=== PATIENT | female | born 1950 | race Caucasian/White ===

== ENCOUNTER 2019-10-29 17:38 | IRF | payer MEDICARE, OTHER, SELFPAY ==
--- NOTE | ~2019-10-29 | US_ITS ---
EXAMINATION: US venous doppler [facility] DATE: 11/07/2019 12:31 INDICATION: Lower limb pain TECHNIQUE: Grayscale ultrasound images without and with compression and Doppler ultrasound images of the bilateral lower extremity veins were obtained. COMPARISON: None. FINDINGS: The visualized portions of right common femoral vein, profunda (deep) femoral vein, femoral vein, pop liteal vein, posterior tibial veins, peroneal veins, gastrocnemius vein and greater saphenous vein ou tflow are patent. There is some synovitis within a 7.0 x 2.4 x 1.8 cm Julio cyst at the right poplite al fossa. The visualized portions of left common femoral vein, profunda femoral vein, femoral vein, popliteal v ein, posterior tibial veins, peroneal veins, gastrocnemius vein and greater saphenous vein outflow ar e patent. IMPRESSION: 1. No deep venous thrombosis in either lower limb. 2. Moderate-sized right Julio's cyst. Reviewed, dictated and finalized at location A.
[2019-10-29 17:30] VITALS: BP 143/66; PULSE 88; RESP 20; TEMP 36.1; O2SAT 100; BMI 31.2
--- NOTE | 2019-10-29 17:53 | ADMGEN ---
This patient, Mray Jo Mitchell, was admitted to [facility] Room 218-01. Patient/family oriented to hospital policies and general routines including ID bracelet, bed and alarms, visiting hours, pain management, procedures, bathroom and other care routines, personal items, smoking policy, room service/diet, and visiting hours. Valuables list has been completed. Information on how to activate the Rapid Response Team has been discussed. Patient/Family are encouraged to report perceived risks to care and to ask questions if they do not understand what they are told or what they should do. 1730 arrived to [facility] via ambulance, alert/oriented
[2019-10-29 18:49] LABS: Glucose Point of Care 130 (65-105)
[2019-10-29] MEDS: ATORVASTATIN 40 MG TABLET PO (20:23)
[2019-10-29] MEDS: levETIRAcetam 500 MG TABLET 1000 MG PO (20:24)
[2019-10-29] MEDS: PANTOPRAZOLE SOD SESQUIHYDRATE 20 MG TAB PO (20:24)
[2019-10-29] MEDS: GABAPENTIN 300 MG CAPSULE PO (20:25)
[2019-10-29] MEDS: TAMSULOSIN HCL 0.4 MG CAPSULE PO (20:25)
[2019-10-29] MEDS: DONEPEZIL HCL 10 MG TABLET PO (20:26)
[2019-10-29] MEDS: TOPIRAMATE 25 MG TABLET PO (20:26)
[2019-10-29] MEDS: SENNA/DOCUSATE SODIUM TABLET 2 TAB PO (20:27)
[2019-10-29 21:23] LABS: Glucose Point of Care 156 (65-105)
[2019-10-29 22:00] VITALS: BP 135/58; PULSE 95; RESP 17; TEMP 36.7; O2SAT 99
[2019-10-29 22:39] LABS: Add Urine Microscopic? NO; Appearance Urine Clear (Clear); Bilirubin Urine Negative (Negative); Blood Urine Negative (Negative); Color Urine Colorless (Yellow); Glucose Urine UA Negative (Negative); Ketones Urine Negative (Negative); Leukocyte Esterase Ur Negative LEU/UL (NEGATIVE); Nitrate Urine Negative (Negative); Protein Urine Negative (Negative); Specific Grav Ur 1.006 (1.001-1.035); Urobilinogen Urine Negative mg/dL (<2.0)
[2019-10-30 04:37] LABS: Basophils Percent Auto 0.2 % (0.2-1.2); Eosinophils Absolute Auto 0.2 K/mm3 (0-0.3); Eosinophils Percent Auto 3.3 % (0-4.4); Hematocrit 25.6 % (37.0-47.0); Hemoglobin 8.3 g/dL (12.0-15.0); Immature Granulocyte Absolute 0.02 K/mm3 (0.00-0.031); Immature Granulocyte Percent A 0.3 % (0-0.5); Lymphocytes Absolute Auto 1.45 K/mm3 (0.9-3.2); Lymphocytes Percent Auto 22.8 % (18.3-44.2); Mean Corpuscular HGB Conc 32.4 g/dl (32-36); Mean Corpuscular Hemoglobin 28.8 pg (26-34); Mean Corpuscular Volume 88.9 fl (80-100); Mean Platelet Volume 10.4 fl (7.4-10.4); Monocytes Absolute Auto 0.6 K/mm3 (0.1-0.6); Monocytes Percent Auto 8.9 % (2.6-8.5); Neutrophils Absolute Auto 4.1 K/mm3 (1.3-6.7); Neutrophils Percent Auto 64.5 % (45.5-73.1); Platelet Count Result 132 k/mm3 (150-375); Red Blood Count 2.88 M/mm3 (4.2-5.4); Red Cell Distribution Width 15.8 % (11.5-14.5); White Blood Count 6.4 K/mm3 (4.5-10.0)
[2019-10-30 05:01] LABS: Anion Gap 8.5 mmol/L (7-16); Blood Urea Nitrogen 23 mg/dL (7-17); Carbon Dioxide 26 mmol/L (22-30); Chloride 107 mmol/L (98-107); Estimated CRCL calculation 47 ml/min; Estimated Glomerular Filt Rate 55; Glucose 107 mg/dL (65-105); Potassium 4.5 mmol/L (3.4-5.0); Sodium 137 mmol/L (137-145)
[2019-10-30] MEDS: GABAPENTIN 300 MG CAPSULE PO ×3 (05:17→20:11)
[2019-10-30 06:00] VITALS: BP 139/60; PULSE 81; RESP 18; TEMP 36.9; O2SAT 100
[2019-10-30 06:40] LABS: Glucose Point of Care 113 (65-105)
[2019-10-30] MEDS: ASPIRIN 325 MG TABLET PO ×2 (08:35→17:28)
[2019-10-30] MEDS: CHOLECALCIFEROL 1,000 UNIT TABLET 2000 UNITS PO (08:36)
[2019-10-30] MEDS: lamoTRIgine 25 MG TABLET 50 MG PO (08:36)
[2019-10-30] MEDS: levETIRAcetam 500 MG TABLET 1000 MG PO ×2 (08:37→20:11)
[2019-10-30] MEDS: metFORMIN HCL 500 MG TABLET PO (08:37)
[2019-10-30] MEDS: lamoTRIgine 100 MG TABLET PO (08:37)
[2019-10-30] MEDS: TOPIRAMATE 25 MG TABLET PO ×2 (08:38→20:11)
[2019-10-30] MEDS: MULTIVITAMINS /C LUTEIN (CENTRUM SILVER) TABLET *BKC 1 TAB PO (08:38)
[2019-10-30] MEDS: polyethylene glycoL 3350 17 GM POWD.PACK PO (08:38)
--- NOTE | 2019-10-30 11:00 | WPDREHABHP ---
H&P: HPI History of Present Illness Date/Time: 10/30/19 13:29 Chief complaint: L distal femur fracture Narrative: Mary Jo Mitchell is a 69 year old female HISTORY OF PRESENT ILLNESS: The patient's primary rehab impairment category is0 7-[id number] extremity fracture The etiologic diagnosis is oblique fracture of the left distal left femur with medial and anterior displacement of the distal fracture fragment. /Post surgery I saw this patient [id number] on October 30, 2019 at 11:00 a.m. The patient is a 69-year-old right-handed white woman with a past medical history of left cerebral hemispheric stroke with residual right-sided weakness, prior subdural hematoma, right frontal ventriculoperitoneal shunt in the setting of normal pressure hydrocephalus, diabetes mellitus, hypertension, hyperlipidemia and seizures who initially presented to [facility] and October 25, 2019 after suffering a fall on to the left side of her body. The evaluation demonstrated an oblique fracture of the distal left femur with medial and anterior displacement of the distal fracture fragment and a chronic appearing T11 compression deformity. Orthopedic surgery was consulted for the femur fracture and Neurosurgery was consulted for the T11 compression fracture with 25% height loss. The patient underwent an intramedullary nailing on October 26, [address] Lambert Siddiqi. She is weight-bearing as tolerated. The patient will need sutures removed in 3 weeks and this can be done at rehab or at by home health nursing. Postoperatively she has experienced acute blood-loss anemia acute postoperative pain and hypotension that has resolved. Neurosurgery evaluated the T11 compression fracture and decided to manage this nonoperatively with a quick draw brace. She is not on any spinal precautions. DVT prophylaxis with heparin while inpatient and then transition to enteric-coated aspirin 325 milligram b.i.d. for 14 days. Surgical dressing are to be changed on postop day 2 through 5 and is okay for nursing reinforce the dressing p.r.n. if the become swelled or have shadowing. The patient's follow-up appointment has not been scheduled at this time. The patient has not traveled outside the [place] or had contact with someone who is ill that has traveled outside the [place] in the past 21 days. The patient has not traveled to an area of the [place] that is experiencing no transmission of the Coronavirus and has not had close personal contact with anyone that has. The patient does not have a fever. The patient is not experiencing any lower except respiratory illness symptoms. Therapy was initiated at the acute care facility and the patient transferred to us from [facility] on October 29, 2019 FALLS OR SURGERIES: The patient has had major surgeries in the 100 days prior to admission. They had falls in the past year. They had falls with injury in the past year. PAST MEDICAL HISTORY: type 2 diabetes mellitus with peripheral neuropathy, hypertension, hyperlipidemia, Alzheimer's dementia, seizures, left cerebral hemispheric stroke with residual right-sided weakness, history of subdural hematoma [employer] or hemorrhage 2010 normal pressure hydrocephalus with a shunt placement, urinary retention. PAST SURGICAL HISTORY: Mildred hole in 2009, right frontal ventriculoperitoneal shunt. 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 The patient lives in a 1 level home with 3 steps to enter. She was completely independent prior with no assistive device. Her on sons are available to help her following rehab if necessary. The patient is a retired nurse and likes to read. She is a nonsmoker no drug abuse occasional alcohol use. The patient reported falls with injury in the past 6 months she had ma kae surgery this admission FAMILY HISTORY: father had myocardial infarction and renal failure. Mother of ovarian cancer. THIERNO
[2019-10-30 11:55] LABS: Glucose Point of Care 122 (65-105)
[2019-10-30 13:02] VITALS: BMI 31.2
--- NOTE | 2019-10-30 13:37 | PCCCNOTE ---
On 10/30/19, the student, [Rj Byrd ], provided care and completed [facility] documentation on this patient. I have reviewed the student's documentation and agree with the findings.
[2019-10-30 14:00] VITALS: BP 115/58; PULSE 85; RESP 20; TEMP 36.9; O2SAT 100
--- NOTE | 2019-10-30 17:19 | RPD ---
INDIVIDUALIZED PLAN OF CARE FOR Mary Jo Mitchell Brief Synthesis of Pre-Admission Screen, Post-Admission Evaluation and Therapy Evaluations: The patient presents to rehab with Oblique fracture of the left distal left femur with medial and anterior displacement of the distal fracture fragment. Comorbidities include status post intramedullary nailing of the left femur fracture, chronic T11 compression deformity with 25% height loss, diabetes mellitus, hypertension, hyperlipidemia, obstructive sleep apnea, ventriculoperitoneal shunt, acute postoperative pain, and acute blood loss anemia. The patient?s needs will be best met in an intensive program vs. at a lower level of care. The patient requires physician services for medical oversight, management of postop complications in setting of present comorbidities, and pain management. The patient requires nursing services for DVT prophylactics, infection protection, medication management and education, pressure relief, and wound care. Deficits include:ADLs, Balance, Endurance, Family Training/Education, Mobility, Pain Management, ROM, Safety, Strength, and Transfers Crusher Operator/Case Management for: Discharge Planning and Patient/Family Counseling Physical Therapy: 5 days per week for 90 minutes. Treatments may include: Therapeutic Exercise, Gait Training, Neuromuscular Re-education, Transfer Training, Community Reintegration, Bed Mobility, Patient/Family Education, Wheelchair Mobility Group Therapy/Concurrent Therapy Rationales: -Improve attention span during functional activities in a distracted environment. -Enhance problem solving and/or adequate judgment skills during functional activities in a distracted environment. -Promote increased safety awareness in a distracted environment to reduce fall risk with functional tasks, transfers, and ambulation to allow a more safe, self-sufficient return to the home environment. -Improve dynamic balance skills to promote safety and independence with functional activities in a distracted environment for maximum gain. Occupational Therapy: 5 days per week for 90 minutes. Treatments may include: Therapeutic Exercise, Therapeutic Activity, Cognitive Training, Self-Care Transfer Training, Community Reintegration, Home Management, Patient/Family Education, Wheelchair Mobility Training, Energy Conservation Training Group Therapy/Concurrent Therapy Rationales: -Allow therapist to observe and teach generalization and carry-over of skills learned in individual therapy. -Enhance problem solving and sequencing skills during therapeutic activities in a distracted environment. -Promote increased safety awareness in a realistic setting to reduce fall risk with functional tasks due to visual and verbal distractions. -Increase functional level with ADLs, ADL transfers and use of adaptive equipment through therapeutic activities with others while promoting safety to allow a more safe, self-sufficient return home. Medical Prognosis: Good Anticipated Length of Stay: 14 days Rehab Goals: Eating Goal: 06-Independent Oral Hygiene Goal: 06-Independent Toileting Hygiene Goal: 06-Independent Shower/Bathe Self Goal: 05-Setup or Clean Up Assistance Upper Body Dressing Goal: 05-Setup or Clean Up Assistance Lower Body Dressing Goal: 05-Setup or Clean Up Assistance Putting On/Taking Off Footwear Goal: 05-Setup or Clean Up Assistance Rolling Left and Right Goal: 06-Independent Sit to Lying Goal: 06-Independent Lying to Sitting on Side of Bed Goal: 06-Independent Sit to Stand Goal: 06-Independent Chair/Ilk-qs-Orfsi Transfer Goal: 06-Independent Toilet Transfer Goal: 06-Independent Car Transfer Goal: 06-Independent Walk 10' Goal: 06-Independent Walk 50' with Two Turns Goal: 06-Independent Walk 150' Goal: 03-Partial/Moderate Assistance Walk 10' on Uneven Surface Goal: 06-Independent 1 Step (Curb) Goal: 06-Independent 4 Steps Goal: 06-Independent 12 Steps Goal Score: 03-Partial/Moderate Assistance
[2019-10-30 17:46] LABS: Glucose Point of Care 99 (65-105)
[2019-10-30] MEDS: DONEPEZIL HCL 10 MG TABLET PO (20:10)
[2019-10-30] MEDS: PANTOPRAZOLE SOD SESQUIHYDRATE 20 MG TAB PO (20:11)
[2019-10-30] MEDS: SENNA/DOCUSATE SODIUM TABLET 2 TAB PO (20:11)
[2019-10-30] MEDS: ATORVASTATIN 40 MG TABLET PO (20:11)
[2019-10-30] MEDS: TAMSULOSIN HCL 0.4 MG CAPSULE PO (20:11)
[2019-10-30 20:44] LABS: Glucose Point of Care 135 (65-105)
[2019-10-30 21:36] VITALS: BP 134/65; PULSE 86; RESP 18; TEMP 35.8; O2SAT 100
[2019-10-31] MEDS: GABAPENTIN 300 MG CAPSULE PO ×3 (05:31→20:18)
[2019-10-31 06:00] VITALS: BP 118/58; PULSE 86; RESP 18; TEMP 36.3; O2SAT 97
[2019-10-31 06:50] LABS: Glucose Point of Care 113 (65-105)
[2019-10-31 08:00] VITALS: PULSE 86; RESP 18; O2SAT 97
[2019-10-31] MEDS: CHOLECALCIFEROL 1,000 UNIT TABLET 2000 UNITS PO (08:33)
[2019-10-31] MEDS: lamoTRIgine 25 MG TABLET 50 MG PO (08:33)
[2019-10-31] MEDS: metFORMIN HCL 500 MG TABLET PO (08:33)
[2019-10-31] MEDS: ASPIRIN 325 MG TABLET PO ×2 (08:33→17:05)
[2019-10-31] MEDS: levETIRAcetam 500 MG TABLET 1000 MG PO ×2 (08:34→20:18)
[2019-10-31] MEDS: MULTIVITAMINS /C LUTEIN (CENTRUM SILVER) TABLET *BKC 1 TAB PO (08:34)
[2019-10-31] MEDS: lamoTRIgine 100 MG TABLET PO (08:34)
[2019-10-31] MEDS: TOPIRAMATE 25 MG TABLET PO ×2 (08:34→20:18)
[2019-10-31] MEDS: polyethylene glycoL 3350 17 GM POWD.PACK PO (08:34)
[2019-10-31 14:00] VITALS: BP 136/61; PULSE 82; RESP 18; TEMP 36.4; O2SAT 100
[2019-10-31 16:30] LABS: Glucose Point of Care 123 (65-105)
[2019-10-31] MEDS: DONEPEZIL HCL 10 MG TABLET PO (20:18)
[2019-10-31] MEDS: ATORVASTATIN 40 MG TABLET PO (20:18)
[2019-10-31] MEDS: PANTOPRAZOLE SOD SESQUIHYDRATE 20 MG TAB PO (20:18)
[2019-10-31] MEDS: TAMSULOSIN HCL 0.4 MG CAPSULE PO (20:19)
[2019-10-31] MEDS: SENNA/DOCUSATE SODIUM TABLET 2 TAB PO (20:19)
[2019-10-31 21:27] VITALS: BP 137/63; PULSE 86; RESP 18; TEMP 35.9; O2SAT 100
[2019-11-01 06:00] VITALS: BP 119/57; PULSE 85; RESP 18; TEMP 35.6; O2SAT 95
[2019-11-01] MEDS: GABAPENTIN 300 MG CAPSULE PO ×3 (06:37→20:10)
[2019-11-01 06:48] LABS: Glucose Point of Care 109 (65-105)
[2019-11-01 08:00] VITALS: PULSE 85; RESP 18; O2SAT 95
[2019-11-01] MEDS: CHOLECALCIFEROL 1,000 UNIT TABLET 2000 UNITS PO (08:10)
[2019-11-01] MEDS: levETIRAcetam 500 MG TABLET 1000 MG PO ×2 (08:10→20:11)
[2019-11-01] MEDS: lamoTRIgine 25 MG TABLET 50 MG PO (08:10)
[2019-11-01] MEDS: ASPIRIN 325 MG TABLET PO ×2 (08:10→17:03)
[2019-11-01] MEDS: lamoTRIgine 100 MG TABLET PO (08:11)
[2019-11-01] MEDS: TOPIRAMATE 25 MG TABLET PO ×2 (08:11→20:12)
[2019-11-01] MEDS: metFORMIN HCL 500 MG TABLET PO (08:11)
[2019-11-01] MEDS: polyethylene glycoL 3350 17 GM POWD.PACK PO (08:11)
[2019-11-01] MEDS: MULTIVITAMINS /C LUTEIN (CENTRUM SILVER) TABLET *BKC 1 TAB PO (08:11)
[2019-11-01 09:12] VITALS: TEMP 35.6
[2019-11-01 14:00] VITALS: BP 128/58; PULSE 88; RESP 16; TEMP 37.2; O2SAT 100
[2019-11-01 17:09] LABS: Glucose Point of Care 114 (65-105)
[2019-11-01] MEDS: ATORVASTATIN 40 MG TABLET PO (20:10)
[2019-11-01] MEDS: DONEPEZIL HCL 10 MG TABLET PO (20:11)
[2019-11-01] MEDS: SENNA/DOCUSATE SODIUM TABLET 2 TAB PO (20:11)
[2019-11-01] MEDS: PANTOPRAZOLE SOD SESQUIHYDRATE 20 MG TAB PO (20:11)
[2019-11-01] MEDS: TAMSULOSIN HCL 0.4 MG CAPSULE PO (20:11)
[2019-11-01 20:22] VITALS: BP 163/69; PULSE 107; RESP 18; TEMP 37.6; O2SAT 94
[2019-11-02] MEDS: GABAPENTIN 300 MG CAPSULE PO ×3 (05:46→21:00)
[2019-11-02 06:00] VITALS: BP 123/58; PULSE 93; RESP 18; TEMP 36.9; O2SAT 98
[2019-11-02 06:33] LABS: Glucose Point of Care 102 (65-105)
[2019-11-02 08:00] VITALS: PULSE 88; RESP 18; O2SAT 98
[2019-11-02] MEDS: lamoTRIgine 100 MG TABLET PO (08:32)
[2019-11-02] MEDS: lamoTRIgine 25 MG TABLET 50 MG PO (08:32)
[2019-11-02] MEDS: TOPIRAMATE 25 MG TABLET PO ×2 (08:32→21:00)
[2019-11-02] MEDS: polyethylene glycoL 3350 17 GM POWD.PACK PO (08:33)
[2019-11-02] MEDS: CHOLECALCIFEROL 1,000 UNIT TABLET 2000 UNITS PO (08:33)
[2019-11-02] MEDS: metFORMIN HCL 500 MG TABLET PO (08:33)
[2019-11-02] MEDS: ASPIRIN 325 MG TABLET PO ×2 (08:33→17:44)
[2019-11-02] MEDS: levETIRAcetam 500 MG TABLET 1000 MG PO ×2 (08:33→20:59)
[2019-11-02] MEDS: MULTIVITAMINS /C LUTEIN (CENTRUM SILVER) TABLET *BKC 1 TAB PO (08:33)
--- NOTE | 2019-11-02 10:52 | WPDNEURORHBP ---
Subjective Date/time seen: S/P surgery for left distalfemur fracture and surgeryseen on 11/01/19 and note being documented today11/02/19 10:52 Review of Systems Review of Systems: All systems reviewed & are unremarkable except as noted in HPI and below Functional Status Ambulation Ability Ability to Ambulate 10 Feet: Contact Guard Ambulation Assistive Devices: Walker, Wheeled Transfers Ability Ability to Transfer In/Out of Chair: Minimum Assistance X 1 Exam Const: General: cooperative, comfortable and no acute distress HENMT: Head: normal to inspection and normocephalic Ears: hearing grossly normal bilaterally General nose exam: Normal external nose present Face and sinus: normal facial exam and face symmetric Mouth: Yes Normal oral and palatal mucosa present, Yes tongue normal and Yes moist mucous membranes Eyes: General: appearance normal, both eyes and all related structures Neck: Neck: full ROM and no lymphadenopathy Thyroid: thyroid normal Resp: Effort & Inspection: normal respiratory effort Auscultation: clear to auscultation bilaterally Cardio: Rate: regular rate GI: Percussion: Yes normal to percussion Auscultation: normal bowel sounds Skin: General skin exam: no rashes or lesions noted Neuro: General: oriented to person, oriented to place, oriented to time, moves all extremities and no meningeal signs Cranial nerves: Yes Equal, round and reactive pupils present, Yes Nystagmus not present, Yes Midline tongue present and Yes Ability to bilaterally rotate head present Speech: normal speech Gait exam (Neuro): Unable to assess gait Motor exam (neuro): 5/5 motor strength present throughout (residual right hemiparesis) Deep tendon reflexes (DTR's): Right triceps reflex intensity grade: 2+, Left triceps reflex intensity grade: 1+, Rt Biceps (C5, C6): 2+, Left biceps reflex intensity grade: 1+, Right brachioradialis reflex intensity grade: 2+, Left brachioradialis reflex intensity grade: 1+, Right patellar reflex intensity grade: 2+, Right ankle reflex intensity grade: 2+ and Left ankle reflex intensity grade: 1+ Plantar Reflex Responses: downgoing: left and upgoing (positive Babinski): right Psych: Speech and movement: Clear speech present Affect: normal affect Attitude: cooperative Thought process: Normal thought process present Thought content: Yes Normal thought content present Insight: Fair insight present (Psych) Judgement: Fair judgement present (Psych) Objective Data Vital Signs Vital Signs: Vital Signs - 24 hr 11/01/19 14:00 11/01/19 20:22 11/02/19 06:00 Temperature 37.2 C 37.6 C H 36.9 C Pulse Rate 88 107 H 93 Respiratory Rate 16 18 18 Blood Pressure 128/58 L 163/69 H 123/58 L Pulse Oximetry 100 94 98 Intake/Output Intake/Output: Intake & Output 10/30/19 10/31/19 11/01/19 11/02/19 23:59 23:59 23:59 23:59 Intake Total 960 1320 1440 240 Balance 960 1320 1440 240 Meds/Results Medications: Active Medications Generic Name Dose Route Start Last Admin Trade Name Freq PRN Reason Stop Dose Admin Acetaminophen 1,000 mg 10/29/19 18:48 Tylenol Tablet PO Q6H PRN Mild Pain (1-3) Aspirin 325 mg 10/29/19 18:55 11/02/19 08:33 Aspirin PO 325 mg BID FLORY Administration Atorvastatin Calcium 40 mg 10/29/19 21:00 11/01/19 20:10 Lipitor PO 40 mg HS FLORY Administration Bupropion HCl 150 mg 10/29/19 21:00 11/02/19 08:33 Wellbutrin-Sr (12 Hr) PO 150 mg Q12HR FLORY Administration Donepezil HCl 10 mg 10/29/19 21:00 11/01/19 20:11 Aricept PO 10 mg HS FOLRY Administration Gabapentin 300 mg 10/29/19 22:00 11/02/19 05:46 Neurontin PO 300 mg Q8HR FLORY Administration Lamotrigine 50 mg 10/30/19 09:00 11/02/19 08:32 Lamictal PO 11/29/19 09:01 50 mg DAILY FLORY Administration Lamotrigine 100 mg 10/30/19 09:00 11/02/19 08:32 Lamictal PO 11/29/19 09:01 100 mg DAILY FLORY Administration Levetiracetam 1,000 mg 10/29/19
[2019-11-02 14:00] VITALS: BP 114/41; PULSE 91; RESP 20; TEMP 36.2; O2SAT 99
[2019-11-02 17:04] LABS: Glucose Point of Care 127 (65-105)
[2019-11-02] MEDS: TAMSULOSIN HCL 0.4 MG CAPSULE PO (21:00)
[2019-11-02] MEDS: ATORVASTATIN 40 MG TABLET PO (21:00)
[2019-11-02] MEDS: PANTOPRAZOLE SOD SESQUIHYDRATE 20 MG TAB PO (21:00)
[2019-11-02] MEDS: DONEPEZIL HCL 10 MG TABLET PO (21:00)
[2019-11-02] MEDS: SENNA/DOCUSATE SODIUM TABLET 2 TAB PO (21:00)
[2019-11-02 21:40] VITALS: BP 133/57; PULSE 91; RESP 18; TEMP 35.2; O2SAT 97
[2019-11-03 06:00] VITALS: BP 131/64; PULSE 83; RESP 18; TEMP 35.5; O2SAT 98
[2019-11-03] MEDS: GABAPENTIN 300 MG CAPSULE PO ×3 (07:00→21:02)
[2019-11-03 07:03] LABS: Glucose Point of Care 109 (65-105)
[2019-11-03] MEDS: CHOLECALCIFEROL 1,000 UNIT TABLET 2000 UNITS PO (09:20)
[2019-11-03] MEDS: lamoTRIgine 25 MG TABLET 50 MG PO (09:20)
[2019-11-03] MEDS: ASPIRIN 325 MG TABLET PO ×2 (09:20→17:11)
[2019-11-03] MEDS: lamoTRIgine 100 MG TABLET PO (09:21)
[2019-11-03] MEDS: levETIRAcetam 500 MG TABLET 1000 MG PO ×2 (09:21→20:04)
[2019-11-03] MEDS: polyethylene glycoL 3350 17 GM POWD.PACK PO (09:22)
[2019-11-03] MEDS: MULTIVITAMINS /C LUTEIN (CENTRUM SILVER) TABLET *BKC 1 TAB PO (09:22)
[2019-11-03] MEDS: metFORMIN HCL 500 MG TABLET PO (09:22)
[2019-11-03] MEDS: TOPIRAMATE 25 MG TABLET PO ×2 (09:22→20:04)
--- NOTE | 2019-11-03 12:00 | WPDNEURORHBP ---
Subjective Date/time seen: 11/03/19 12:00 Interval history: this 69-year-old woman is here for left distal femur fracture. Her palmira are to be removed in November 15. The blood sugars are controlled she is weight-bearing as tolerated she walked 48 feet doing fairly well denies any headache nausea vomiting chest pain shortness of breath fever chills sore throat Review of Systems Review of Systems: All systems reviewed & are unremarkable except as noted in HPI and below Functional Status Ambulation Ability Ability to Ambulate 10 Feet: Standby Assistance Ability to Ambulate 50 Feet With 2 Turns: Contact Guard Ambulation Assistive Devices: Walker, Wheeled Transfers Ability Ability to Transfer In/Out of Chair: Minimum Assistance X 1 Exam Const: General: comfortable and no acute distress HENMT: General nose exam: Normal nares present Mouth: Yes moist mucous membranes Eyes: General: appearance normal, both eyes and all related structures Neck: Neck: supple and no JVD Resp: Effort & Inspection: normal respiratory effort Auscultation: clear to auscultation bilaterally Cardio: Rate: regular rate Rhythm: regular rhythm GI: GI Palp: Yes Soft to palpation Auscultation: normal bowel sounds Skin: General skin exam: normal color and no rashes or lesions noted Neuro: Other: patient is awake and alert follows all commands doing fairly well any weakness which she has is related to the surgery she has had otherwise nonfocal examination Patient does have ventriculoperitoneal shunt and old right hemiparesis which is stable and subtle there is some cognitive deficit related to the previous stroke and also the ventriculoperitoneal shunt Extrem: Other: on the surgical site is clean and healthy Psych: Mental Status: mental status grossly normal Objective Data Vital Signs Vital Signs: Vital Signs - 24 hr 11/02/19 14:00 11/02/19 21:40 11/03/19 06:00 Temperature 36.2 C L 35.2 C L 35.5 C L Pulse Rate 91 91 83 Respiratory Rate 20 18 18 Blood Pressure 114/41 L 133/57 L 131/64 Pulse Oximetry 99 97 98 Intake/Output Intake/Output: Intake & Output 10/31/19 11/01/19 11/02/19 11/03/19 23:59 23:59 23:59 23:59 Intake Total 1320 1440 960 480 Balance 1320 1440 960 480 Meds/Results Medications: Active Medications Generic Name Dose Route Start Last Admin Trade Name Freq PRN Reason Stop Dose Admin Acetaminophen 1,000 mg 10/29/19 18:48 Tylenol Tablet PO Q6H PRN Mild Pain (1-3) Aspirin 325 mg 10/29/19 18:55 11/03/19 09:20 Aspirin PO 325 mg BID FLORY Administration Atorvastatin Calcium 40 mg 10/29/19 21:00 11/02/19 21:00 Lipitor PO 40 mg HS FLORY Administration Bupropion HCl 150 mg 10/29/19 21:00 11/03/19 09:20 Wellbutrin-Sr (12 Hr) PO 150 mg Q12HR FLORY Administration Donepezil HCl 10 mg 10/29/19 21:00 11/02/19 21:00 Aricept PO 10 mg HS FLORY Administration Gabapentin 300 mg 10/29/19 22:00 11/03/19 07:00 Neurontin PO 300 mg Q8HR FLORY Administration Lamotrigine 50 mg 10/30/19 09:00 11/03/19 09:20 Lamictal PO 11/29/19 09:01 50 mg DAILY FLORY Administration Lamotrigine 100 mg 10/30/19 09:00 11/03/19 09:21 Lamictal PO 11/29/19 09:01 100 mg DAILY FLORY Administration Levetiracetam 1,000 mg 10/29/19 21:00 11/03/19 09:21 Keppra Tablet PO 1,000 mg Q12HR FLORY Administration Loratadine 10 mg 10/29/19 18:48 Claritin PO DAILY PRN Allergy Symptoms Metformin HCl 500 mg 10/30/19 09:00 11/03/19 09:22 Glucophage PO 500 mg DAILY FLORY Administration Multivitamins/Minerals 1 tab 10/30/19 09:00 11/03/19 09:22 Centrum Silver PO 1 tab DAILY FLORY Administration Non-Formulary Medication 40 mg 11/01/19 18:00 11/02/19 17:44 Lurasidone [Latuda] PO 12/01/19 18:01 40 mg QPM FLORY Administration Oxycodone HCl 5 mg 10/29/19 18:48 11/03/19 09:23 Roxicodone Ir Tablet PO 5 mg Q4H PRN Administrat
[2019-11-03 12:39] LABS: Glucose Point of Care 99 (65-105)
--- NOTE | 2019-11-03 13:29 | PCNFU ---
Nutrition Follow-Up Complete: Decreased fat/sodium needs related to cardiovascular disease as evidenced by history of CVA. Goal: Patient to consume 75% of meals or greater. Patient is meeting goal with 100% meal consumption Pt current nutrition is Diabetic Consistent Carbohydrate. Nutrition recommendation: Agree with current recommendations. Last recorded weight is 82.5 kg. Bowel Motility: last bowel movement reported on 11/02/19 Labs Reviewed: No recent labs. Recommend obtaining new lab values Meds Noted: glucophage, centrum, latude, protonix, miralax, sennapril, vitamin D, topamax, flomax, senokot, roxicodine, lipitor, neurontin Additional Notes: Patient reports good appetite. Patient did not report any diet related concerns/questions Follow up every 7 days.
[2019-11-03 14:00] VITALS: BP 133/55; PULSE 90; RESP 20; TEMP 36.6; O2SAT 100
--- NOTE | 2019-11-03 14:05 | PCNSR ---
On 11/03/19, the student,Mau Donaldson, provided care and completed [facility] documentation on this patient. I have reviewed the student's documentation and agree with the findings.
[2019-11-03 17:07] LABS: Glucose Point of Care 133 (65-105)
[2019-11-03] MEDS: DONEPEZIL HCL 10 MG TABLET PO (20:04)
[2019-11-03] MEDS: PANTOPRAZOLE SOD SESQUIHYDRATE 20 MG TAB PO (20:04)
[2019-11-03] MEDS: TAMSULOSIN HCL 0.4 MG CAPSULE PO (20:04)
[2019-11-03] MEDS: ATORVASTATIN 40 MG TABLET PO (20:04)
[2019-11-03 20:29] VITALS: BP 134/69; PULSE 97; RESP 18; TEMP 37.1; O2SAT 99
[2019-11-04] MEDS: GABAPENTIN 300 MG CAPSULE PO ×3 (05:30→21:32)
[2019-11-04 05:42] VITALS: BP 135/58; PULSE 77; RESP 18; TEMP 36.7; O2SAT 99
[2019-11-04 06:51] LABS: Glucose Point of Care 116 (65-105)
[2019-11-04] MEDS: metFORMIN HCL 500 MG TABLET PO (08:59)
[2019-11-04] MEDS: levETIRAcetam 500 MG TABLET 1000 MG PO ×2 (08:59→21:32)
[2019-11-04] MEDS: CHOLECALCIFEROL 1,000 UNIT TABLET 2000 UNITS PO (08:59)
[2019-11-04] MEDS: lamoTRIgine 100 MG TABLET PO (08:59)
[2019-11-04] MEDS: lamoTRIgine 25 MG TABLET 50 MG PO (08:59)
[2019-11-04] MEDS: ASPIRIN 325 MG TABLET PO ×2 (08:59→17:04)
[2019-11-04] MEDS: MULTIVITAMINS /C LUTEIN (CENTRUM SILVER) TABLET *BKC 1 TAB PO (09:00)
[2019-11-04] MEDS: polyethylene glycoL 3350 17 GM POWD.PACK PO (09:00)
[2019-11-04] MEDS: TOPIRAMATE 25 MG TABLET PO ×2 (09:01→21:32)
[2019-11-04 12:08] LABS: Glucose Point of Care 87 (65-105)
[2019-11-04 14:00] VITALS: BP 134/66; PULSE 82; RESP 18; TEMP 36.4; O2SAT 100
--- NOTE | 2019-11-04 16:46 | WPDNEURORHBP ---
Subjective Date/time seen: 11/04/19 16:46 Interval history: this 69-year-old woman is here after having had the surgery for the left distal femur fracture she is doing fairly well and making progress in the rehab her pain control is better she walked about 60 feet today she denies any headache nausea vomiting chest pain shortness of breath fever chills sore throat Review of Systems Review of Systems: All systems reviewed & are unremarkable except as noted in HPI and below Functional Status Ambulation Ability Ability to Ambulate 10 Feet: Standby Assistance Ability to Ambulate 50 Feet With 2 Turns: Standby Assistance Ambulation Assistive Devices: Walker, Wheeled Transfers Ability Ability to Transfer In/Out of Chair: Minimum Assistance X 1 Exam Const: General: comfortable and no acute distress HENMT: General nose exam: Normal nares present Mouth: Yes moist mucous membranes Eyes: General: appearance normal, both eyes and all related structures Neck: Neck: supple and no JVD Resp: Effort & Inspection: normal respiratory effort Auscultation: clear to auscultation bilaterally Cardio: Rate: regular rate Rhythm: regular rhythm GI: GI Palp: Yes Soft to palpation Auscultation: normal bowel sounds Skin: General skin exam: normal color and no rashes or lesions noted Neuro: Other: patient is awake alert well oriented making progress in the rehab if any weakness is related to the the femur fracture but she is making progress with therapy overall Extrem: Other: the surgical incision is clean and healthy Psych: Mental Status: mental status grossly normal Objective Data Vital Signs Vital Signs: Vital Signs - 24 hr 11/03/19 20:29 11/04/19 05:42 11/04/19 14:00 Temperature 37.1 C 36.7 C 36.4 C Pulse Rate 97 77 82 Respiratory Rate 18 18 18 Blood Pressure 134/69 135/58 L 134/66 Pulse Oximetry 99 99 100 Intake/Output Intake/Output: Intake & Output 11/01/19 11/02/19 11/03/19 11/04/19 23:59 23:59 23:59 23:59 Intake Total 1079 918 0480 720 Balance 2551 966 6211 720 Meds/Results Medications: Active Medications Generic Name Dose Route Start Last Admin Trade Name Freq PRN Reason Stop Dose Admin Acetaminophen 1,000 mg 10/29/19 18:48 Tylenol Tablet PO Q6H PRN Mild Pain (1-3) Aspirin 325 mg 10/29/19 18:55 11/04/19 08:59 Aspirin PO 325 mg BID FLORY Administration Atorvastatin Calcium 40 mg 10/29/19 21:00 11/03/19 20:04 Lipitor PO 40 mg HS FLORY Administration Bupropion HCl 150 mg 10/29/19 21:00 11/04/19 08:59 Wellbutrin-Sr (12 Hr) PO 150 mg Q12HR FLORY Administration Donepezil HCl 10 mg 10/29/19 21:00 11/03/19 20:04 Aricept PO 10 mg HS FLORY Administration Gabapentin 300 mg 10/29/19 22:00 11/04/19 13:26 Neurontin PO 300 mg Q8HR FLORY Administration Lamotrigine 50 mg 10/30/19 09:00 11/04/19 08:59 Lamictal PO 11/29/19 09:01 50 mg DAILY FLORY Administration Lamotrigine 100 mg 10/30/19 09:00 11/04/19 08:59 Lamictal PO 11/29/19 09:01 100 mg DAILY FLORY Administration Levetiracetam 1,000 mg 10/29/19 21:00 11/04/19 08:59 Keppra Tablet PO 1,000 mg Q12HR FLORY Administration Loratadine 10 mg 10/29/19 18:48 Claritin PO DAILY PRN Allergy Symptoms Metformin HCl 500 mg 10/30/19 09:00 11/04/19 08:59 Glucophage PO 500 mg DAILY FLORY Administration Multivitamins/Minerals 1 tab 10/30/19 09:00 11/04/19 09:00 Centrum Silver PO 1 tab DAILY FLORY Administration Non-Formulary Medication 40 mg 11/01/19 18:00 11/03/19 17:12 Lurasidone [Latuda] PO 12/01/19 18:01 40 mg QPM FLORY Administration Oxycodone HCl 5 mg 10/29/19 18:48 11/04/19 11:38 Roxicodone Ir Tablet PO 5 mg Q4H PRN Administration SEVERE PAIN Pantoprazole Sodium 20 mg 10/29/19 21:00 11/03/19 20:04 Protonix PO 20 mg HS FLORY Administration Polyethylene Glycol 17 gm 10/30/19 09:00 11/04/19 09:00 M
[2019-11-04 17:20] LABS: Glucose Point of Care 98 (65-105)
[2019-11-04 20:24] LABS: Glucose Point of Care 127 (65-105)
[2019-11-04] MEDS: DONEPEZIL HCL 10 MG TABLET PO (21:33)
[2019-11-04] MEDS: PANTOPRAZOLE SOD SESQUIHYDRATE 20 MG TAB PO (21:33)
[2019-11-04] MEDS: TAMSULOSIN HCL 0.4 MG CAPSULE PO (21:33)
[2019-11-04] MEDS: ATORVASTATIN 40 MG TABLET PO (21:33)
[2019-11-04 21:45] VITALS: BP 128/60; PULSE 82; RESP 18; TEMP 35.9; O2SAT 100
[2019-11-05] MEDS: GABAPENTIN 300 MG CAPSULE PO ×3 (05:17→20:14)
[2019-11-05 05:57] VITALS: BP 128/68; PULSE 98; RESP 18; TEMP 36.1; O2SAT 98
[2019-11-05 06:31] LABS: Glucose Point of Care 94 (65-105)
[2019-11-05] MEDS: CHOLECALCIFEROL 1,000 UNIT TABLET 2000 UNITS PO (08:18)
[2019-11-05] MEDS: ASPIRIN 325 MG TABLET PO ×2 (08:18→17:48)
[2019-11-05] MEDS: lamoTRIgine 25 MG TABLET 50 MG PO (08:18)
[2019-11-05] MEDS: levETIRAcetam 500 MG TABLET 1000 MG PO ×2 (08:19→20:13)
[2019-11-05] MEDS: TOPIRAMATE 25 MG TABLET PO ×2 (08:19→20:14)
[2019-11-05] MEDS: metFORMIN HCL 500 MG TABLET PO (08:19)
[2019-11-05] MEDS: lamoTRIgine 100 MG TABLET PO (08:19)
[2019-11-05] MEDS: MULTIVITAMINS /C LUTEIN (CENTRUM SILVER) TABLET *BKC 1 TAB PO (08:20)
[2019-11-05] MEDS: polyethylene glycoL 3350 17 GM POWD.PACK PO (08:20)
--- NOTE | 2019-11-05 11:12 | PCPTNOTE ---
Mary Jo Mitchell was evaluated for a wheeled walker on 11/05/2019 by this physical therapist senior office support assistant sosa. The wheeled walker will resolve patient's mobility limitations and will be used for ADL's within the home. The patient can safely use the wheeled walker. ?The wheeled walker will resolve the patient?s mobility deficits, including impaired balance, decreased strength and endurance. .
[2019-11-05 14:00] VITALS: BP 132/59; PULSE 92; RESP 20; TEMP 37.2; O2SAT 100
[2019-11-05] MEDS: ACETAMINOPHEN 500 MG TABLET 1000 MG PO (14:24)
--- NOTE | 2019-11-05 14:52 | PCPTNOTE ---
During AM PT session this date at 9:40 HOGSHEAD LINER recommends wheeled walker and wheelchair with anti-tippers and bilateral elevating leg rests. Patient declines wheelchair recommendation due to having one at home. Patient stated wanting to use quad cane at home for bathroom mobility. HOGSHEAD LINER highly recommends utilizing wheeled walker due to decreased balance and endurance to facilitate safety.
[2019-11-05] MEDS: TAMSULOSIN HCL 0.4 MG CAPSULE PO (20:13)
[2019-11-05] MEDS: ATORVASTATIN 40 MG TABLET PO (20:13)
[2019-11-05] MEDS: PANTOPRAZOLE SOD SESQUIHYDRATE 20 MG TAB PO (20:14)
[2019-11-05] MEDS: DONEPEZIL HCL 10 MG TABLET PO (20:14)
[2019-11-05 22:00] VITALS: BP 160/70; PULSE 82; RESP 18; TEMP 37.5; O2SAT 100
[2019-11-06 04:46] LABS: Basophils Percent Auto 0.2 % (0.2-1.2); Eosinophils Absolute Auto 0.2 K/mm3 (0-0.3); Eosinophils Percent Auto 3.2 % (0-4.4); Hemoglobin 8.6 g/dL (12.0-15.0); Immature Granulocyte Absolute 0.02 K/mm3 (0.00-0.031); Immature Granulocyte Percent A 0.4 % (0-0.5); Lymphocytes Absolute Auto 1.64 K/mm3 (0.9-3.2); Lymphocytes Percent Auto 29.5 % (18.3-44.2); Mean Corpuscular HGB Conc 31.9 g/dl (32-36); Mean Corpuscular Volume 90.9 fl (80-100); Mean Platelet Volume 9.2 fl (7.4-10.4); Monocytes Absolute Auto 0.5 K/mm3 (0.1-0.6); Monocytes Percent Auto 8.1 % (2.6-8.5); Neutrophils Absolute Auto 3.3 K/mm3 (1.3-6.7); Neutrophils Percent Auto 58.6 % (45.5-73.1); Platelet Count Result 269 k/mm3 (150-375); Red Blood Count 2.97 M/mm3 (4.2-5.4); Red Cell Distribution Width 16.7 % (11.5-14.5); White Blood Count 5.6 K/mm3 (4.5-10.0)
[2019-11-06 05:00] LABS: Anion Gap 9.1 mmol/L (7-16); Blood Urea Nitrogen 21 mg/dL (7-17); Calcium 9.1 mg/dL (8.4-10.2); Carbon Dioxide 23 mmol/L (22-30); Chloride 109 mmol/L (98-107); Estimated CRCL calculation 47 ml/min; Estimated Glomerular Filt Rate 55; Glucose 96 mg/dL (65-105); Potassium 4.1 mmol/L (3.4-5.0); Sodium 137 mmol/L (137-145)
[2019-11-06] MEDS: ACETAMINOPHEN 500 MG TABLET 1000 MG PO (05:01)
[2019-11-06] MEDS: GABAPENTIN 300 MG CAPSULE PO ×3 (05:02→20:47)
[2019-11-06 06:00] VITALS: BP 153/89; PULSE 84; RESP 18; TEMP 36.7; O2SAT 99
[2019-11-06 06:57] LABS: Glucose Point of Care 93 (65-105)
[2019-11-06] MEDS: ASPIRIN 325 MG TABLET PO ×2 (07:36→17:34)
[2019-11-06] MEDS: levETIRAcetam 500 MG TABLET 1000 MG PO ×2 (07:37→20:47)
[2019-11-06] MEDS: lamoTRIgine 25 MG TABLET 50 MG PO (07:37)
[2019-11-06] MEDS: metFORMIN HCL 500 MG TABLET PO (07:37)
[2019-11-06] MEDS: CHOLECALCIFEROL 1,000 UNIT TABLET 2000 UNITS PO (07:37)
[2019-11-06] MEDS: polyethylene glycoL 3350 17 GM POWD.PACK PO (07:38)
[2019-11-06] MEDS: lamoTRIgine 100 MG TABLET PO (07:38)
[2019-11-06] MEDS: MULTIVITAMINS /C LUTEIN (CENTRUM SILVER) TABLET *BKC 1 TAB PO (07:38)
[2019-11-06] MEDS: TOPIRAMATE 25 MG TABLET PO ×2 (07:38→20:47)
[2019-11-06 09:36] VITALS: BP 105/55; PULSE 88; O2SAT 99
[2019-11-06 13:37] VITALS: BP 114/61; PULSE 93; O2SAT 100
[2019-11-06 14:00] VITALS: BP 133/58; PULSE 85; RESP 20; TEMP 37.4; O2SAT 100
--- NOTE | 2019-11-06 15:14 | WPDNEURORHBP ---
Subjective Date/time seen: 11/06/19 15:14 Interval history: This 69-year-old woman is here post surgery after having had left distal femur fracture. She is doing fairly well denies any headache nausea vomiting chest pain shortness of breath fever chills sore throat and she is making progress in the rehab Review of Systems Review of Systems: All systems reviewed & are unremarkable except as noted in HPI and below Functional Status Ambulation Ability Ability to Ambulate 10 Feet: Independent Ability to Ambulate 50 Feet With 2 Turns: Contact Guard Ambulation Assistive Devices: Walker, Wheeled Transfers Ability Ability to Transfer In/Out of Chair: Standby Assistance Exam Const: General: comfortable and no acute distress HENMT: General nose exam: Normal nares present Mouth: Yes moist mucous membranes Eyes: General: appearance normal, both eyes and all related structures Neck: Neck: supple and no JVD Resp: Effort & Inspection: normal respiratory effort Auscultation: clear to auscultation bilaterally Cardio: Rate: regular rate Rhythm: regular rhythm GI: GI Palp: Yes Soft to palpation Auscultation: normal bowel sounds Skin: General skin exam: normal color and no rashes or lesions noted Neuro: Other: patient is awake and alert well oriented time place and person she is making progress in the rehab overall strength and the PT OT has improved Extrem: Other: the incision from the surgeries clean Psych: Mental Status: mental status grossly normal Objective Data Vital Signs Vital Signs: Vital Signs - 24 hr 11/05/19 22:00 11/06/19 06:00 11/06/19 09:36 Temperature 37.5 C 36.7 C Pulse Rate 82 84 88 Respiratory Rate 18 18 Blood Pressure 160/70 H 153/89 H 105/55 L Pulse Oximetry 100 99 99 11/06/19 13:37 11/06/19 14:00 Temperature 37.4 C Pulse Rate 93 85 Respiratory Rate 20 Blood Pressure 114/61 133/58 L Pulse Oximetry 100 100 Intake/Output Intake/Output: Intake & Output 11/03/19 11/04/19 11/05/19 11/06/19 23:59 23:59 23:59 23:59 Intake Total 7618 411 0870 1080 Balance 1090 807 1805 1080 Meds/Results Medications: Active Medications Generic Name Dose Route Start Last Admin Trade Name Freq PRN Reason Stop Dose Admin Acetaminophen 1,000 mg 10/29/19 18:48 11/06/19 05:01 Tylenol Tablet PO 1,000 mg Q6H PRN Administration Mild Pain (1-3) Aspirin 325 mg 10/29/19 18:55 11/06/19 07:36 Aspirin PO 325 mg BID FLORY Administration Atorvastatin Calcium 40 mg 10/29/19 21:00 11/05/19 20:13 Lipitor PO 40 mg HS FLORY Administration Bupropion HCl 150 mg 10/29/19 21:00 11/06/19 07:36 Wellbutrin-Sr (12 Hr) PO 150 mg Q12HR FLORY Administration Donepezil HCl 10 mg 10/29/19 21:00 11/05/19 20:14 Aricept PO 10 mg HS FLORY Administration Gabapentin 300 mg 10/29/19 22:00 11/06/19 13:56 Neurontin PO 300 mg Q8HR FLORY Administration Lamotrigine 50 mg 10/30/19 09:00 11/06/19 07:37 Lamictal PO 11/29/19 09:01 50 mg DAILY FLORY Administration Lamotrigine 100 mg 10/30/19 09:00 11/06/19 07:38 Lamictal PO 11/29/19 09:01 100 mg DAILY FLORY Administration Levetiracetam 1,000 mg 10/29/19 21:00 11/06/19 07:37 Keppra Tablet PO 1,000 mg Q12HR FLORY Administration Loratadine 10 mg 10/29/19 18:48 Claritin PO DAILY PRN Allergy Symptoms Metformin HCl 500 mg 10/30/19 09:00 11/06/19 07:37 Glucophage PO 500 mg DAILY FLORY Administration Multivitamins/Minerals 1 tab 10/30/19 09:00 11/06/19 07:38 Centrum Silver PO 1 tab DAILY FLORY Administration Non-Formulary Medication 40 mg 11/01/19 18:00 11/05/19 17:48 Lurasidone [Latuda] PO 12/01/19 18:01 40 mg QPM FLORY Administration Oxycodone HCl 5 mg 10/29/19 18:48 11/06/19 11:59 Roxicodone Ir Tablet PO 5 mg Q4H PRN Administration SEVERE PAIN Pantoprazole Sodium 20 mg 10/29/19 21:00 11/05/19 20:14 Protonix PO 20 mg HS S
[2019-11-06] MEDS: TAMSULOSIN HCL 0.4 MG CAPSULE PO (20:47)
[2019-11-06] MEDS: ATORVASTATIN 40 MG TABLET PO (20:47)
[2019-11-06] MEDS: PANTOPRAZOLE SOD SESQUIHYDRATE 20 MG TAB PO (20:47)
[2019-11-06] MEDS: DONEPEZIL HCL 10 MG TABLET PO (20:48)
[2019-11-06 22:00] VITALS: BP 143/67; PULSE 85; RESP 18; TEMP 37.3; O2SAT 97
[2019-11-07] MEDS: GABAPENTIN 300 MG CAPSULE PO ×3 (04:24→19:50)
[2019-11-07] MEDS: ACETAMINOPHEN 500 MG TABLET 1000 MG PO ×3 (04:24→17:07)
[2019-11-07 06:00] VITALS: BP 143/66; PULSE 78; RESP 19; TEMP 37.1; O2SAT 98
[2019-11-07 07:02] LABS: Glucose Point of Care 98 (65-105)
[2019-11-07] MEDS: ASPIRIN 325 MG TABLET PO ×2 (08:40→17:08)
[2019-11-07] MEDS: CHOLECALCIFEROL 1,000 UNIT TABLET 2000 UNITS PO (08:40)
[2019-11-07] MEDS: MULTIVITAMINS /C LUTEIN (CENTRUM SILVER) TABLET *BKC 1 TAB PO (08:41)
[2019-11-07] MEDS: polyethylene glycoL 3350 17 GM POWD.PACK PO (08:41)
[2019-11-07] MEDS: lamoTRIgine 100 MG TABLET PO (08:41)
[2019-11-07] MEDS: levETIRAcetam 500 MG TABLET 1000 MG PO ×2 (08:41→19:49)
[2019-11-07] MEDS: metFORMIN HCL 500 MG TABLET PO (08:41)
[2019-11-07] MEDS: lamoTRIgine 25 MG TABLET 50 MG PO (08:41)
[2019-11-07] MEDS: TOPIRAMATE 25 MG TABLET PO ×2 (08:42→19:51)
[2019-11-07 14:00] VITALS: BP 131/57; PULSE 88; RESP 20; TEMP 37.2; O2SAT 99
--- NOTE | 2019-11-07 16:03 | WPDNEURORHBP ---
Subjective Date/time seen: 11/07/19 16:03 Interval history: This 69-year-old woman underlying psych disorder is here post surgery left distal femur fracture she was complaining of some calf discomfort this morning we order the venous Doppler and it is negative she is doing fairly well otherwise no headache nausea vomiting chest pain shortness of breath fever chills sore throat Review of Systems Review of Systems: All systems reviewed & are unremarkable except as noted in HPI and below Functional Status Ambulation Ability Ability to Ambulate 10 Feet: Independent Ability to Ambulate 50 Feet With 2 Turns: Independent Ambulation Assistive Devices: Walker, Wheeled Transfers Ability Ability to Transfer In/Out of Chair: Standby Assistance Exam Const: General: no acute distress and in distress HENMT: General nose exam: Normal nares present Mouth: Yes moist mucous membranes Eyes: General: appearance normal, both eyes and all related structures Neck: Neck: supple and no JVD Resp: Effort & Inspection: normal respiratory effort Auscultation: clear to auscultation bilaterally Cardio: Rate: regular rate Rhythm: regular rhythm GI: GI Palp: Yes Soft to palpation Auscultation: normal bowel sounds Skin: General skin exam: normal color and no rashes or lesions noted Neuro: Other: patient is awake and alert in good spirits and improving overall as for as the strength is concerned except of course the fact that she had a fracture whatever weakness she has is related to that Extrem: Other: the incision from the left hip or a her rather at the distal femur fracture is fairly decent Psych: Mental Status: mental status grossly normal Objective Data Vital Signs Vital Signs: Vital Signs - 24 hr 11/06/19 22:00 11/07/19 06:00 11/07/19 14:00 Temperature 37.3 C 37.1 C 37.2 C Pulse Rate 85 78 88 Respiratory Rate 18 19 20 Blood Pressure 143/67 H 143/66 H 131/57 L Pulse Oximetry 97 98 99 Intake/Output Intake/Output: Intake & Output 11/04/19 11/05/19 11/06/19 11/07/19 23:59 23:59 23:59 23:59 Intake Total 960 1040 1800 480 Balance 960 1040 1800 480 Meds/Results Medications: Active Medications Generic Name Dose Route Start Last Admin Trade Name Freq PRN Reason Stop Dose Admin Acetaminophen 1,000 mg 10/29/19 18:48 11/07/19 11:10 Tylenol Tablet PO 1,000 mg Q6H PRN Administration Mild Pain (1-3) Aspirin 325 mg 10/29/19 18:55 11/07/19 08:40 Aspirin PO 325 mg BID FLORY Administration Atorvastatin Calcium 40 mg 10/29/19 21:00 11/06/19 20:47 Lipitor PO 40 mg HS FLORY Administration Bupropion HCl 150 mg 10/29/19 21:00 11/07/19 08:40 Wellbutrin-Sr (12 Hr) PO 150 mg Q12HR FLORY Administration Donepezil HCl 10 mg 10/29/19 21:00 11/06/19 20:48 Aricept PO 10 mg HS FLORY Administration Gabapentin 300 mg 10/29/19 22:00 11/07/19 14:32 Neurontin PO 300 mg Q8HR FLORY Administration Lamotrigine 50 mg 10/30/19 09:00 11/07/19 08:41 Lamictal PO 11/29/19 09:01 50 mg DAILY FLORY Administration Lamotrigine 100 mg 10/30/19 09:00 11/07/19 08:41 Lamictal PO 11/29/19 09:01 100 mg DAILY FLORY Administration Levetiracetam 1,000 mg 10/29/19 21:00 11/07/19 08:41 Keppra Tablet PO 1,000 mg Q12HR FLORY Administration Loratadine 10 mg 10/29/19 18:48 Claritin PO DAILY PRN Allergy Symptoms Metformin HCl 500 mg 10/30/19 09:00 11/07/19 08:41 Glucophage PO 500 mg DAILY FLORY Administration Multivitamins/Minerals 1 tab 10/30/19 09:00 11/07/19 08:41 Centrum Silver PO 1 tab DAILY FLORY Administration Non-Formulary Medication 40 mg 11/01/19 18:00 11/06/19 17:34 Lurasidone [Latuda] PO 12/01/19 18:01 40 mg QPM FLORY Administration Oxycodone HCl 5 mg 10/29/19 18:48 11/07/19 13:09 Roxicodone Ir Tablet PO 5 mg Q4H PRN Administration SEVERE PAIN Pantoprazole Sodium 20 mg 10/29/19 21:00 11/06/19 20:47
[2019-11-07 17:29] LABS: Glucose Point of Care 94 (65-105)
[2019-11-07] MEDS: PANTOPRAZOLE SOD SESQUIHYDRATE 20 MG TAB PO (19:50)
[2019-11-07] MEDS: TAMSULOSIN HCL 0.4 MG CAPSULE PO (19:50)
[2019-11-07] MEDS: DONEPEZIL HCL 10 MG TABLET PO (19:51)
[2019-11-07] MEDS: ATORVASTATIN 40 MG TABLET PO (19:51)
[2019-11-07 22:00] VITALS: BP 164/82; PULSE 85; RESP 18; TEMP 36.7; O2SAT 100
[2019-11-08] MEDS: GABAPENTIN 300 MG CAPSULE PO ×3 (05:56→21:16)
[2019-11-08 06:00] VITALS: BP 137/66; PULSE 87; RESP 19; TEMP 37; O2SAT 98
[2019-11-08 06:47] LABS: Glucose Point of Care 98 (65-105)
[2019-11-08] MEDS: CHOLECALCIFEROL 1,000 UNIT TABLET 2000 UNITS PO (08:23)
[2019-11-08] MEDS: lamoTRIgine 25 MG TABLET 50 MG PO (08:23)
[2019-11-08] MEDS: ASPIRIN 325 MG TABLET PO ×2 (08:23→17:08)
[2019-11-08] MEDS: lamoTRIgine 100 MG TABLET PO (08:24)
[2019-11-08] MEDS: TOPIRAMATE 25 MG TABLET PO ×2 (08:24→21:16)
[2019-11-08] MEDS: MULTIVITAMINS /C LUTEIN (CENTRUM SILVER) TABLET *BKC 1 TAB PO (08:25)
[2019-11-08] MEDS: levETIRAcetam 500 MG TABLET 1000 MG PO ×2 (08:25→21:14)
[2019-11-08] MEDS: metFORMIN HCL 500 MG TABLET PO (08:25)
[2019-11-08] MEDS: polyethylene glycoL 3350 17 GM POWD.PACK PO (08:25)
[2019-11-08 14:00] VITALS: BP 139/61; PULSE 84; RESP 20; TEMP 36.5; O2SAT 99
[2019-11-08 17:14] LABS: Glucose Point of Care 120 (65-105)
[2019-11-08] MEDS: ACETAMINOPHEN 500 MG TABLET 1000 MG PO (20:04)
[2019-11-08] MEDS: ATORVASTATIN 40 MG TABLET PO (21:14)
[2019-11-08] MEDS: PANTOPRAZOLE SOD SESQUIHYDRATE 20 MG TAB PO (21:15)
[2019-11-08] MEDS: DONEPEZIL HCL 10 MG TABLET PO (21:15)
[2019-11-08] MEDS: TAMSULOSIN HCL 0.4 MG CAPSULE PO (21:16)
[2019-11-08 21:44] VITALS: BP 152/75; PULSE 75; RESP 18; TEMP 36; O2SAT 99
[2019-11-09] MEDS: ACETAMINOPHEN 500 MG TABLET 1000 MG PO (05:02)
[2019-11-09] MEDS: GABAPENTIN 300 MG CAPSULE PO ×3 (05:02→21:42)
[2019-11-09 06:00] VITALS: BP 133/64; PULSE 85; RESP 18; TEMP 36.3; O2SAT 100
[2019-11-09 06:45] LABS: Glucose Point of Care 95 (65-105)
[2019-11-09] MEDS: ASPIRIN 325 MG TABLET PO ×2 (08:17→17:23)
[2019-11-09] MEDS: CHOLECALCIFEROL 1,000 UNIT TABLET 2000 UNITS PO (08:18)
[2019-11-09] MEDS: MULTIVITAMINS /C LUTEIN (CENTRUM SILVER) TABLET *BKC 1 TAB PO (08:19)
[2019-11-09] MEDS: metFORMIN HCL 500 MG TABLET PO (08:19)
[2019-11-09] MEDS: lamoTRIgine 25 MG TABLET 50 MG PO (08:19)
[2019-11-09] MEDS: lamoTRIgine 100 MG TABLET PO (08:19)
[2019-11-09] MEDS: levETIRAcetam 500 MG TABLET 1000 MG PO ×2 (08:19→21:42)
[2019-11-09] MEDS: polyethylene glycoL 3350 17 GM POWD.PACK PO (08:25)
[2019-11-09] MEDS: TOPIRAMATE 25 MG TABLET PO ×2 (08:26→21:42)
--- NOTE | 2019-11-09 09:24 | WPDNEURORHBP ---
Subjective Date/time seen: S/P left femur fracture repair with underlying DC remains stable no specific [id number]/10/20 09:24 Review of Systems Review of Systems: All systems reviewed & are unremarkable except as noted in HPI and below Functional Status Ambulation Ability Ability to Ambulate 10 Feet: Independent Ability to Ambulate 50 Feet With 2 Turns: Independent Ambulation Assistive Devices: Walker, Wheeled Transfers Ability Ability to Transfer In/Out of Chair: Standby Assistance Exam Const: General: comfortable and no acute distress HENMT: Head: normocephalic General nose exam: Normal external nose present and No nasal discharge present Face and sinus: normal facial exam Eyes: General: appearance normal, both eyes and all related structures Neck: Neck: full ROM and no lymphadenopathy Resp: Effort & Inspection: normal respiratory effort Auscultation: clear to auscultation bilaterally Cardio: Rate: regular rate Rhythm: regular rhythm GI: Auscultation: normal bowel sounds Skin: Wounds: wounds noted (red with drainage surgeon to be called) Neuro: General: oriented to person and oriented to place Psych: Speech and movement: Normal speech and movement present Affect: normal affect Attitude: cooperative Insight: Fair insight present (Psych) Judgement: Fair judgement present (Psych) Objective Data Vital Signs Vital Signs: Vital Signs - 24 hr 11/08/19 14:00 11/08/19 21:44 11/09/19 06:00 Temperature 36.5 C 36.0 C L 36.3 C L Pulse Rate 84 75 85 Respiratory Rate 20 18 18 Blood Pressure 139/61 152/75 H 133/64 Pulse Oximetry 99 99 100 Intake/Output Intake/Output: Intake & Output 11/06/19 11/07/19 11/08/19 11/09/19 23:59 23:59 23:59 23:59 Intake Total 4899 024 6197 480 Balance 7589 455 2913 480 Meds/Results Medications: Active Medications Generic Name Dose Route Start Last Admin Trade Name Freq PRN Reason Stop Dose Admin Acetaminophen 1,000 mg 10/29/19 18:48 11/09/19 05:02 Tylenol Tablet PO 1,000 mg Q6H PRN Administration Mild Pain (1-3) Aspirin 325 mg 10/29/19 18:55 11/09/19 08:17 Aspirin PO 325 mg BID FLORY Administration Atorvastatin Calcium 40 mg 10/29/19 21:00 11/08/19 21:14 Lipitor PO 40 mg HS FLORY Administration Bupropion HCl 150 mg 10/29/19 21:00 11/09/19 08:17 Wellbutrin-Sr (12 Hr) PO 150 mg Q12HR FLORY Administration Donepezil HCl 10 mg 10/29/19 21:00 11/08/19 21:15 Aricept PO 10 mg HS FLORY Administration Gabapentin 300 mg 10/29/19 22:00 11/09/19 05:02 Neurontin PO 300 mg Q8HR FLORY Administration Lamotrigine 50 mg 10/30/19 09:00 11/09/19 08:19 Lamictal PO 11/29/19 09:01 50 mg DAILY FLORY Administration Lamotrigine 100 mg 10/30/19 09:00 11/09/19 08:19 Lamictal PO 11/29/19 09:01 100 mg DAILY FLORY Administration Levetiracetam 1,000 mg 10/29/19 21:00 11/09/19 08:19 Keppra Tablet PO 1,000 mg Q12HR FLORY Administration Loratadine 10 mg 10/29/19 18:48 Claritin PO DAILY PRN Allergy Symptoms Metformin HCl 500 mg 10/30/19 09:00 11/09/19 08:19 Glucophage PO 500 mg DAILY FLORY Administration Multivitamins/Minerals 1 tab 10/30/19 09:00 11/09/19 08:19 Centrum Silver PO 1 tab DAILY FLORY Administration Non-Formulary Medication 40 mg 11/01/19 18:00 11/08/19 17:09 Lurasidone [Latuda] PO 12/01/19 18:01 40 mg QPM FLORY Administration Oxycodone HCl 5 mg 10/29/19 18:48 11/09/19 08:17 Roxicodone Ir Tablet PO 5 mg Q4H PRN Administration SEVERE PAIN Pantoprazole Sodium 20 mg 10/29/19 21:00 11/08/19 21:15 Protonix PO 20 mg HS FLORY Administration Polyethylene Glycol 17 gm 10/30/19 09:00 11/09/19 08:25 Miralax PO 17 gm DAILY FLROY Administration Senna/Docusate Sodium 2 tab 11/04/19 08:57 Senokot S Tablet PO HS PRN Constipation Tamsulosin HCl 0.4 mg 10/29/19 21:00 11/08/19 21:16 Flomax PO
--- NOTE | 2019-11-09 10:34 | PC.NURSE ---
Wound to left lateral knee is raised, red, warm to touch and has several small pustules as well as s/s drainage. Spoke with Dr. Brian and he looked at as well. Placed call to surgeon and 's nurse changed Mary Jo's appointment for this 11/11 at 10:40 for possible staple removal (due out around the and to f/u wound). She also ok'd for Dr. Brian to start antibiotic for now.
[2019-11-09 14:00] VITALS: BP 131/64; PULSE 82; RESP 16; TEMP 36.6; O2SAT 100
[2019-11-09] MEDS: PANTOPRAZOLE SOD SESQUIHYDRATE 20 MG TAB PO (21:42)
[2019-11-09] MEDS: DONEPEZIL HCL 10 MG TABLET PO (21:42)
[2019-11-09] MEDS: TAMSULOSIN HCL 0.4 MG CAPSULE PO (21:42)
[2019-11-09] MEDS: ATORVASTATIN 40 MG TABLET PO (21:42)
[2019-11-09 22:00] VITALS: BP 126/60; PULSE 80; RESP 16; TEMP 36.6; O2SAT 100
[2019-11-10] MEDS: ACETAMINOPHEN 500 MG TABLET 1000 MG PO ×2 (03:13→12:13)
[2019-11-10 05:57] VITALS: BP 146/66; PULSE 83; RESP 18; TEMP 36.5; O2SAT 99
[2019-11-10] MEDS: GABAPENTIN 300 MG CAPSULE PO ×2 (06:01→13:23)
[2019-11-10 06:38] LABS: Glucose Point of Care 94 (65-105)
[2019-11-10] MEDS: ASPIRIN 325 MG TABLET PO (08:48)
[2019-11-10] MEDS: CHOLECALCIFEROL 1,000 UNIT TABLET 2000 UNITS PO (08:48)
[2019-11-10] MEDS: lamoTRIgine 25 MG TABLET 50 MG PO (08:49)
[2019-11-10] MEDS: lamoTRIgine 100 MG TABLET PO (08:49)
[2019-11-10] MEDS: TOPIRAMATE 25 MG TABLET PO (08:50)
[2019-11-10] MEDS: MULTIVITAMINS /C LUTEIN (CENTRUM SILVER) TABLET *BKC 1 TAB PO (08:50)
[2019-11-10] MEDS: levETIRAcetam 500 MG TABLET 1000 MG PO (08:50)
[2019-11-10] MEDS: metFORMIN HCL 500 MG TABLET PO (08:50)
[2019-11-10] MEDS: polyethylene glycoL 3350 17 GM POWD.PACK PO (08:50)
--- NOTE | 2019-11-10 10:00 | WPDNEURORHBP ---
Subjective Date/time seen: 11/10/19 10:00 Interval history: This 69-year-old woman has finished for acute rehab and she is going to be discharged to home with the outpatient PT and OT she has almost all her medication at home she has been walking up to 150 feet all other comorbidities have been stable and the details are available in the initial history and physical examination also in the problem list and also in my previous notes she denies having had headache nausea vomiting chest pain shortness of breath fever chills sore throat Review of Systems Review of Systems: All systems reviewed & are unremarkable except as noted in HPI and below Functional Status Ambulation Ability Ability to Ambulate 10 Feet: Independent Ability to Ambulate 50 Feet With 2 Turns: Independent Ability to Ambulate 150 Feet: Independent Ambulation Assistive Devices: Walker, Wheeled Transfers Ability Ability to Transfer In/Out of Chair: Standby Assistance Exam Const: General: comfortable and no acute distress HENMT: General nose exam: Normal nares present Mouth: Yes moist mucous membranes Eyes: General: appearance normal, both eyes and all related structures Neck: Neck: supple and no JVD Resp: Effort & Inspection: normal respiratory effort Auscultation: clear to auscultation bilaterally Cardio: Rate: regular rate Rhythm: regular rhythm GI: GI Palp: Yes Soft to palpation Auscultation: normal bowel sounds Skin: General skin exam: normal color and no rashes or lesions noted Neuro: Other: patient is awake alert oriented x3 does have a [id number] cognitive deficit related to her intracranial issues as have been documented in the previous records she has shown no sign of worsening of her neurological state if anything she is better than what she came in with Extrem: General: normal to inspection Other: the incision is clean from the surgery she had Psych: Other: [id number] cognitive deficit with mental status is grossly normal however from the psychological standpoint Objective Data Vital Signs Vital Signs: Vital Signs - 24 hr 11/09/19 14:00 11/09/19 22:00 11/10/19 05:57 Temperature 36.6 C 36.6 C 36.5 C Pulse Rate 82 80 83 Respiratory Rate 16 16 18 Blood Pressure 131/64 126/60 146/66 H Pulse Oximetry 100 100 99 Intake/Output Intake/Output: Intake & Output 11/07/19 11/08/19 11/09/19 11/10/19 23:59 23:59 23:59 23:59 Intake Total 720 1200 1440 Balance 720 1200 1440 Meds/Results Medications: Active Medications Generic Name Dose Route Start Last Admin Trade Name Karen PRN Reason Stop Dose Admin Acetaminophen 1,000 mg 10/29/19 18:48 11/10/19 03:13 Tylenol Tablet PO 1,000 mg Q6H PRN Administration Mild Pain (1-3) Aspirin 325 mg 10/29/19 18:55 11/10/19 08:48 Aspirin PO 325 mg BID FLORY Administration Atorvastatin Calcium 40 mg 10/29/19 21:00 11/09/19 21:42 Lipitor PO 40 mg HS FLORY Administration Bupropion HCl 150 mg 10/29/19 21:00 11/10/19 08:48 Wellbutrin-Sr (12 Hr) PO 150 mg Q12HR FLORY Administration Donepezil HCl 10 mg 10/29/19 21:00 11/09/19 21:42 Aricept PO 10 mg HS FLORY Administration Gabapentin 300 mg 10/29/19 22:00 11/10/19 06:01 Neurontin PO 300 mg Q8HR FLORY Administration Lamotrigine 50 mg 10/30/19 09:00 11/10/19 08:49 Lamictal PO 11/29/19 09:01 50 mg DAILY FLORY Administration Lamotrigine 100 mg 10/30/19 09:00 11/10/19 08:49 Lamictal PO 11/29/19 09:01 100 mg DAILY FLORY Administration Levetiracetam 1,000 mg 10/29/19 21:00 11/10/19 08:50 Keppra Tablet PO 1,000 mg Q12HR FLORY Administration Levofloxacin 500 mg 11/09/19 11:00 11/10/19 06:01 Levaquin Tab PO 500 mg DAILY@0700 FLORY Administration Loratadine 10 mg 10/29/19 18:48 Claritin PO DAILY PRN Allergy Symptoms Metformin HCl 500 mg 10/30/19 09:00 11/10/19 08:50 Glucophage PO 500 mg DAILY FLORY Administratio
--- NOTE | 2019-11-12 10:11 | PM.DS ---
DS: Admitting Diagnosis Admitting Diagnosis Admitting Diagnosis: L distal femur fracture DS: Discharge Diagnosis Discharge Diagnosis (1) Seizure disorder: Code(s): G40.909 - Epilepsy, unspecified, not intractable, without status epilepticus Status: Acute (2) Diabetes mellitus with neuropathy: Code(s): E11.40 - Type 2 diabetes mellitus with diabetic neuropathy, unspecified Status: Acute (3) Alzheimer's dementia: Code(s): G30.9 - Alzheimer's disease, unspecified; F02.80 - Dementia in other diseases classified elsewhere without behavioral disturbance Status: Acute (4) Right hemiparesis: Code(s): G81.91 - Hemiplegia, unspecified affecting right dominant side Status: Acute (5) Ventriculo-peritoneal shunt status: Code(s): 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 - Presence of cerebrospinal fluid drainage device Status: Acute (6) Compression fracture of T11 vertebra: Code(s): S22.080A - Wedge compression fracture of T11-T12 vertebra, initial encounter for closed fracture Status: Acute (7) Femoral distal fracture: Code(s): S72.409A - Unspecified fracture of lower end of unspecified femur, initial encounter for closed fracture Status: Acute DS: Summary Hospital Course Reason for hospitalization: 69 years old right-handed female admitted to the hospital for for left distal femur fracture with medial and anterior displacement of the distal fragment in addition to the 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 During the hospitalization she was actively involved in the physical therapy and occupation therapy Hospital Course: as mentioned above she was not seen by any other concert and during the hospitalization and was actively involved physical therapy and occupational therapy as per the review of the notes at the time of discharge she was able to ambulate independently with a wheeled walker and to turns up to 150ft general physical examination was normal and neurological examination was consistent with moderate dementia Status at Discharge Cognitive/behavioral status at discharge: at the time of discharge in addition to ongoing dementia she became independent in eating oral hygiene toileting requires setup for bathing became independent for upper body dressing lower body dressing independently in footwear ruling in bed sitting to lying lying to sitting to [id number] chair transfer toilet transfer car transfer walking 10ft 50ft with 2 turns walking 150ft she required supervision for walking 10ft on uneven surfaces but became independent for her abortive step 40 steps and picking up objects is still she was unable to go for 12 steps on uneven surfaces and required partial assistance for 50ft and 150ft for wheelchair. She was discharged to her home with outpatient therapy and had no injuries during the entire hospitalization. Time Spent with Patient Time attestation: Total time spent providing and/or coordinating discharge services: Discharge Plan Discharge Attending physician on discharge: Kristofer Haynes Discharging Clinician: Brian Brian Anticipated Discharge Date/Time: 11/10/19 11:00 Patient Disposition: Home Health Service Activity: may shower and no driving Diet: diabetic Wound Care Instructions: follow printed instructions and change dressing daily Patient Instructions: Antibiotic Form, Pain Management (GEN), Safe Use of Anticoagulants (GEN) Stand Alone Forms: General Discharge Information Follow-up/Referr
== END 2019-11-10 13:35 | disposition home health service (06) | DRG 560 ==
PROVIDERS: Admitting Provider Psychiatry & Neurology Neurology; Visit Provider Psychiatry & Neurology Neurology
DX: S72.492D Other fracture of lower end of left femur, subsequent encounter for closed fracture with routine healing (principal); I69.351 Hemiplegia and hemiparesis following cerebral infarction affecting right dominant side; G91.2 (Idiopathic) normal pressure hydrocephalus; S22.080D Wedge compression fracture of T11-T12 vertebra, subsequent encounter for fracture with routine healing; E11.42 Type 2 diabetes mellitus with diabetic polyneuropathy; E78.5 Hyperlipidemia, unspecified; F02.80 Dementia in other diseases classified elsewhere, unspecified severity, without behavioral disturbance, psychotic disturbance, mood disturbance, and anxiety; G40.909 Epilepsy, unspecified, not intractable, without status epilepticus; G30.9 Alzheimer's disease, unspecified; G47.33 Obstructive sleep apnea (adult) (pediatric); I10 Essential (primary) hypertension; M71.21 Synovial cyst of popliteal space [Baker], right knee; Z98.890 Other specified postprocedural states; Z98.2 Presence of cerebrospinal fluid drainage device; Z79.84 Long term (current) use of oral hypoglycemic drugs
CPT/HCPCS: 36415; 80048; 81003; 85025; 87086; 87088; 93970; 97110; 97116; 97162; 97166; 97530; 97535; A9270